=== PATIENT | female | born 1970 | race Caucasian/White ===

== ENCOUNTER 2017-04-25 15:49 | Emergency (ER) | payer BC, OTHER ==
--- NOTE | 2017-04-25 16:08 | PDOC ---
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 She has pain which is not localized and aggravated by movement. Review of systems: No pain or injury to the head neck chest abdomen pelvis spine or other extremities. No distal numbness tingling pain or weakness in the forearm and hand Past medical history: Healthy female, no active medical problems Social/family history reviewed and noncontributory Physical exam: Alert and oriented well-developed well-nourished no acute distress cheerful and cooperative Head atraumatic. PERRLA, fundi benign, ENT clear Neck without tenderness or deformity, full range of motion without pain Lungs clear, no chest wall or rib cage tenderness or deformity CV regular without murmur rub or gallop gallop Abdomen benign Extremities: The right elbow is without deformity or limited range of motion. There is pain with motion at the extremes of flexion and extension supination and pronation. Pulses are full. No distal sensory or motor deficits. No instability of the joint. Mild tenderness over the radial head, the medial lateral condyles, but no tenderness over the olecranon. No swelling, erythema, or skin injury Impression: Sprain or contusion of the elbow, rule out fracture X-ray and further orthopedic management depending on results Past History - Past Medical History Allergies/Adverse Reactions: Allergies Allergy/AdvReac Type Severity Reaction Status Date / Time amoxicillin trihydrate AdvReac Intermediate Vomiting Verified 04/25/17 15:52 [From Augmentin] potassium clavulanate AdvReac Intermediate Vomiting Verified 04/25/17 15:52 [From Augmentin] Home Medications: Ambulatory Orders NK [No Known Home Medication] 04/25/17 COPD: No GI Disorders: Yes (IBS/GALLSTONES) - Surgical History Appendectomy: Yes Cholecystectomy: Yes - Suicide/Smoking/Psychosocial Hx Smoking History: Never smoked Have you smoked in the past 12 months: No Information on smoking cessation initiated: No Hx Alcohol Use: No Drug/Substance Use Hx: No Substance Use Type: None Hx Substance Use Treatment: No *Physical Exam - Vital Signs Last Vital Signs Temp Pulse Resp BP Pulse Ox 98.6 F 88 16 154/106 99 04/25/17 15:51 04/25/17 15:51 04/25/17 15:51 04/25/17 15:51 04/25/17 15:51 Medical Decision Making - Medical Decision Making 04/25/17 17:16 X-ray is negative for fracture. There is an anterior fat pad, but no posterior pad. There is a small possibility of an occult radial head fracture Sling is applied, patient is more comfortable. Rest ice and ibuprofen recommended. Follow-up with orthopedist if no improvement. Fully ambulatory and in no pain or other distress upon discharge to follow-up as directed *DC/Admit/Observation/Transfer Diagnosis at time of Disposition: Sprain of elbow Qualifiers: Encounter type: initial encounter Laterality: right Qualified Code(s): S53.401A - Unspecified sprain of right elbow, initial encounter - Discharge Dispostion Disposition: HOME Condition at time of disposition: Improved Admit: No - Referrals Referrals: Quentin Hinojosa MD [Staff Physician] - 1 week - Patient Instructions Printed Discharge Instructions: How to Use a Sling, DI for Elbow Sprain Additional Instructions: Rest, ice, ibuprofen or naproxen as directed. Wear sling until pain subsides, but no more than 3 days. Then begin gentle range of motion exercises to avoid stiffness If pain persists more than 3-5 days, consult investment specialist for further evaluation and treatment - Post Discharge Activity Forms/Work/School Notes: Back to Work
[2017-04-25 16:10] VITALS: BP 154/106; PULSE 88; TEMP 98.6; BMI 26.5
== END 2017-04-25 16:40 | disposition home or self-care (01) ==
LOC: FER 15:49
DX: S53.401A Unspecified sprain of right elbow, initial encounter (principal); W18.39XA Other fall on same level, initial encounter; Y93.89 Activity, other specified; Y92.9 Unspecified place or not applicable; K58.9 Irritable bowel syndrome, unspecified
CPT/HCPCS: 73070-TC-RT-FY; 99281-25